=== PATIENT | female | born 1930 | race Asian ===

== ENCOUNTER 2018-07-13 21:28 | Inpatient (IN) | payer MEDICARE, MEDICAID ==
--- NOTE | 2018-07-13 22:31 | ED Physician Chart ---
ED Chief Complaint/HPI - Patient Information Date Seen:: 07/13/18 Time Seen:: 22:00 Chief Complaint:: abnormal lab History of Present Illness:: sent lab today [id number] wbc Allergies:: Allergies Allergy/AdvReac Type Severity Reaction Status Date / Time No Known Allergies Allergy Verified 07/13/18 21:54 Vitals:: Vital Signs - 8 hr 07/13/18 21:45 Temp 99.0 F HR 89 RR 20 BP 135/63 O2 Sat % 99 Review:: Nurse's Note Reviewed, Transfer documents Reviewed, Patient unable to respond ED Review of Systems - Review of Systems General/Constitutional: No fever, No chills, No weight loss, No weakness, No diaphoresis, No edema, No loss of appetite Skin: No skin lesions, No rash, No bruising Head: No headache, No light-headedness Eyes: No loss of vision, No pain, No diplopia ENT: No earache, No nasal drainage, No sore throat, No tinnitus Neck: No neck pain, No swelling, No thyromegaly, No stiffness, No mass noted Cardio Vascular: No chest pain, No palpitations, No PND, No orthopnea, No edema Pulmonary: No SOB, No cough, No sputum, No wheezing GI: No nausea, No vomiting, No diarrhea, No pain, No melena, No hematochezia, No constipation, No hematemesis G/U: No dysuria, No frequency, No hematuria Musculoskeletal: No bone or joint pain, No back pain, No muscle pain Endocrine: No polyuria, No polydipsia Psychiatric: No prior psych history, No depression, No anxiety, No suicidal ideation Hematopoietic: No bruising, No lymphadenopathy Allergic/Immuno: No urticaria, No angioedema Neurological: No syncope, No focal symptoms, No weakness, No paresthesia, No headache, No seizure, No dizziness, No confusion, No vertigo Family Medical History - Family Member Mother History Unknown: Yes ED Physical Exam - Physical Examination General/Constitutional: Non-toxic appearing Head: Atraumatic (dry) Skin: No rash ENMT: External ears, nose nl Neck: No JVD ED Septic Shock - . Is Septic Shock (SBP<90, OR Lactate>4 mmol\L) present?: No - <6hrs of presentation: Vital Signs: Vital Signs - 8 hr 07/13/18 21:45 Temp 99.0 F HR 89 RR 20 BP 135/63 O2 Sat % 99 ED Reassessment (Disposition) - Reassessment Reassessment Condition:: Unchanged (discussed dr daly abnormal lab states will culture and work up for infectious etiology) - Patient Disposition Discharge/Transfer:: Acute Care w/in this hosp (malika rivers will work up for infectious etology upon admission)
[2018-07-13 22:47] LABS: RED BLOOD COUNT 3.17 Mil/cmm (3.80-5.20)
[2018-07-13 22:49] LABS: HEMATOCRIT 30.6 % (41.0-60); HEMOGLOBIN 10.2 gm/dL (12-16); MEAN CELL VOLUME 96.6 fl (81-100); MEAN CORPUSCULAR HEMOGLOBIN 32.1 pg (27.0-31.0); MEAN CORPUSCULAR HGB CONC 33.2 pg (28.0-36.0); MEAN PLATELET VOLUME 7.5 fl; PLATELET COUNT 488 Th/cmm (150-400); RED CELL DISTRIBUTION WIDTH 13.4 % (11.5-20.0)
[2018-07-13 22:51] LABS: WHITE BLOOD COUNT 19.6 Th/cmm (4.8-10.8)
[2018-07-13 22:58] LABS: ANION GAP 14.5 (7.0-16.0); BUN - UREA NITROGEN 49 mg/dL (7-25); CALCIUM SERUM 9.6 mg/dL (8.6-10.3); CHLORIDE 104 mEq/L (98-107); CREATININE - SERUM 0.8 mg/dL (0.6-1.2); GLUCOSE 127 mg/dL (70-105); POTASSIUM SERUM 4.5 mEq/L (3.5-5.1); SODIUM SERUM 142 mEq/L (136-145)
[2018-07-13] MEDS ORDERED: Sodium Chloride 0.9% 250 ML IV ONE (23:09)
[2018-07-13 23:11] LABS: BAND NEUTROPHILE 2 % (0-10); EOSINOPHIL 1 % (0-5); LYMPHOCYTE 8 % (20-50); MONOCYTE 4 % (2-10); NEUTROPHILS 85 % (40-80); PLATELET ESTIMATE ADEQUATE (NORMAL)
[2018-07-14] MEDS ORDERED: Piperacillin Sodium/Tazobact 2.25 gm Vial IV ONE (01:51)
[2018-07-14] MEDS: Piperacillin/Tazobact 2.25 gm in 0.9% NS 50 ML IV SCH ×4 (02:13→20:00)
[2018-07-14 06:04] VITALS: BP 132/68
[2018-07-14] MEDS ORDERED: ARFORMOTEROL TARTRATE HHN SCH (09:00)
--- NOTE | 2018-07-14 09:23 | Diagnostic Imaging Report ---
Exam: Portable chest x-ray HISTORY: Pneumonia Findings: Portable exam of chest at 2303 reviewed no prior studies available comparison. Tracheostomy tube is midline. Bony thorax intact. Mediastinal structures midline the heart is not enlarged aortic is calcified. The costophrenic angles are clear. Ill-defined density in the right base appreciated early pneumonic infiltrate cannot be excluded follow-up exam is recommended. IMPRESSION: question of mild right basilar infiltrate follow-up examination is recommended.
--- NOTE | 2018-07-14 09:50 | History & Physical ---
ADMIT DATE: 07/14/2018 CHIEF COMPLAINT: Fever and leukocytosis. HISTORY OF PRESENT ILLNESS: The patient is an 87-year-old Italian-[place] female admitted from the Emergency Room to telemetry floor of [facility] due to multiple complicated medical conditions. The patient was having fever in the residential and I went to see the patient, the day before yesterday. Lab was ordered, which came back revealed marked leukocytosis. The patient was transferred to the Emergency Room for further evaluation. In the Emergency Room, the patient's white count again was 19,600. She is also dehydrated with BUN 49, creatinine 0.8. Lactic acid level was 1.26. UA was not done. Chest x-ray with no official report seen yet, but the patient probably has aspiration pneumonia. The patient is on G-tube feeding due to status post intracranial hemorrhage, which also resolved the ventilator dependent respiratory failure. The patient is status post tracheostomy almost a year ago. PAST MEDICAL HISTORY: Including status post intracranial hemorrhage, which was the main culprit, COPD, pneumonia, questionable coronary artery disease, urinary tract infection, sepsis, anemia, required blood transfusion, decubitus ulcer, history of DVT. PAST SURGICAL HISTORY: Tracheostomy and G-tube placement. MEDICATIONS: See medication reconciliation list. ALLERGIES: No known drug allergy. FAMILY HISTORY: Noncontributory. SOCIAL HISTORY: The patient is without tobacco, alcohol or IV drug use. REVIEW OF SYSTEMS: As per HPI. PHYSICAL EXAMINATION: GENERAL: Well-developed, thin female, in no acute distress. SKIN: There is excoriation. VITAL SIGNS: Basically stable. HEENT: Normocephalic, atraumatic. Pupils equal, round, react to light and accommodation. CHEST: Symmetrical. LUNGS: Few wheezing appreciated with rhonchi at lung base. CARDIAC: Normal sinus rhythm. S1, S2. ABDOMEN: Benign, soft, nontender. EXTREMITIES: No clubbing, cyanosis. There is trace edema bilaterally, 2+ equally. NEUROLOGICAL: Unremarkable. LABORATORY DATA: Reviewed, seen from the computer. ASSESSMENT AND PLAN: 1. High fever in residential: Multifactorial and varghese culture ordered and empiric antibiotics started, which will be adjusted accordingly. 2. Early sepsis: Blood culture ordered, empiric antibiotics started, which will be adjusted accordingly. 3. Marked leukocytosis: Probably due to aspiration pneumonia and urinary tract infection and early sepsis. We will adjust antibiotics accordingly. 4. Ventilator dependent respiratory failure: Continue ventilator precautions. 5. Dysphagia: Due to status post intracranial hemorrhage. We will continue gastric tube feeding and a gastric tube care provided. 6. Decubitus ulcer: Wound care and completion of 12 hours. 7. Chronic obstructive pulmonary disease: RT protocol. 8. Deep vein thrombosis prophylaxis. JOB# [id number]
[2018-07-14] MEDS: Multivitamin Tab GT SCH (11:00)
[2018-07-14] MEDS: Lactulose 10 Gm/15 mL 30mL UDC PO SCH ×2 (11:00→17:55)
[2018-07-14] MEDS: Albuterol/Ipratropium Neb 3 ML AERS HHN SCH ×2 (13:53→19:28)
[2018-07-14] MEDS: Chlorhexidine Gluconate 0.12% 480mL Bottle MM SCH (17:54)
--- NOTE | 2018-07-14 20:03 | Internal Medicine Prog Note ---
Internal Medicine Subjective - Subjective Service Date: 07/14/18 Patient seen and examined:: without staff Patient is:: asleep, non-verbal, non-interactive, eyes closed, in bed Per staff patient has:: no adverse event Internal Medicine Objective - Results Result Diagrams: 07/13/18 22:30 07/13/18 22:30 Recent Labs: Laboratory Last Values WBC 19.6 Th/cmm (4.8-10.8) H 07/13/18 22:30 RBC 3.17 Mil/cmm (3.80-5.20) L 07/13/18 22:30 Hgb 10.2 gm/dL (12-16) L 07/13/18 22: Hct 30.6 % (41.0-60) L 07/13/18 22: MCV 96.6 fl (81-100) 07/13/18 22:30 MCH 32.1 pg (27.0-31.0) H 07/13/18: MCHC Differential 33.2 pg (28.0-36.0) 07/13/18: RDW 13.4 % (11.5-20.0) 07/13/18 22: Plt Count 488 Th/cmm (150-400) H 07/13/18 22:30 MPV 7.5 fl 07/13/18 22:30 Add Manual Diff YES 07/13/18 22:30 Band Neutrophils % 2 % (0-10) 07/13/18 22:30 Neutrophils (Manual) 85 % (40-80) H 07/13/18 22:30 Lymphocytes 8 % (20-50) L 07/13/18 22:30 Monocytes 4 % (2-10) 07/13/18 22:30 Eosinophils 1 % (0-5) 07/13/18 22:30 Platelet Estimate ADEQUATE (NORMAL) 07/13/18 22: Sodium 142 mEq/L (136-145) 07/13/18 22: Potassium 4.5 mEq/L (3.5-5.1) 07/13/18 22:30 Chloride 104 mEq/L (98-107) 07/13/18 22:30 Carbon Dioxide 28.0 mEq/L (21.0-31.0) 07/13/18 22: Anion Gap 14.5 (7.0-16.0) 07/13/18 22:30 BUN 49 mg/dL (7-25) H 07/13/18 22:30 Creatinine 0.8 mg/dL (0.6-1.2) 07/13/18 22:30 Est GFR ( Amer) TNP 07/13/18 22:30 Est GFR (Non-Af Amer) TNP 07/13/18 22:30 BUN/Creatinine Ratio 61.3 07/13/18 22:30 Glucose 127 mg/dL (70-105) H 07/13/18 22:30 Whole Bld Lactic Acid 1.26 mmol/L (0.60-1.99) 07/13/18 22:30 Calcium 9.6 mg/dL (8.6-10.3) 07/13/18 22:30 - Physical Exam Vitals and I&O: Vital Signs Temp 98.6 F 07/14/18 16:00 Pulse 105 07/14/18 16:00 Resp 20 07/14/18 16:00 BP 130/67 07/14/18 16:00 Pulse Ox 96 07/14/18 16:00 Intake & Output 07/14/18 07/14/18 07/15/18 06:59 18:59 06:59 Intake Total 50 700 Balance 50 700 Weight (lbs) 44.906 kg 44.906 kg Intake: Intake, IV Amount 50 50 Piperacillin Sodium/ 50 50 Tazobact 2.25 gm In Sodium Chloride 0.9% 50 ml @ 100 mls/hr IV Q6H [facility] Rx#:[id number] Albumin 200 Other 450 Other: Stool Characteristics Soft Weight Source Estimated Bedscale Active Medications: Current Medications Acetaminophen (Tylenol) 650 mg GT Q6HR PRN PRN Reason: Pain or Fever >101 Stop: 09/12/18 07:58 Albuterol/Ipratropium (Duoneb Neb) 3 ml HHN Q6HRT [facility] Stop: 09/12/18 12:59 Last Admin: 07/14/18 19:28 Dose: 3 ml Amlodipine Besylate (Norvasc) 10 mg GT DAILY [facility] Stop: 09/12/18 08:59 Last Admin: 07/14/18 10:58 Dose: 10 mg Bisacodyl (Dulcolax 10 Mg Supp) 10 mg RC DAILY PRN PRN Reason: Constipation Stop: 09/12/18 07:58 Chlorhexidine Gluconate (Peridex) 15 ml MM BID [facility] Stop: 09/12/18 08:59 Last Admin: 07/14/18 17:54 Dose: 15 ml Glycopyrrolate (Robinul) 1 mg GT BID [facility] Stop: 09/12/18 08:59 Last Admin: 07/14/18 17:54 Dose: 1 mg Piperacillin Sod/Tazobactam (Sod 2.25 gm/ Sodium Chloride) 50 mls @ 100 mls/hr IV Q6H [facility]; Protocol Stop: 09/12/18 01:29 Last Admin: 07/14/18 17:55 Dose: 100 mls/hr Lactulose (Cephulac) 20 gm PO BID [facility] Stop: 09/12/18 08:59 Last Admin: 07/14/18 17:55 Dose: 20 gm Miscellaneous (Arformoterol Tartrate [Brovana]) 1 vial HHN BID [facility] Stop: 09/12/18 08:59 Multivitamins/Vitamin C (Theragran) 1 tab GT DAILY [facility] Stop: 09/12/18 08:59 Last Admin: 07/14/18 11:00 Dose: 1 tab Ondansetron HCl (Zofran) 4 mg IV Q6H PRN PRN Reason: Nausea / Vomiting Stop: 09/12/18 08:14 General: weak, lethargic, congested, demented, obtunded, thin, bilateral temporal wasting HEENT: NC/AT, PERRLA Neck: Supple, No JVD, No thyromegaly, +2 carotid pulse wo bruit, No LAD Lungs: wheezing, ronchi Cardiovascular: RRR, Normal S1, Normal S2, without murmur Abdomen: soft, non-tender, non-distended Extremities: clear, edema Neurological: no change - Procedures Procedures: Procedures Procedure Code Date RESPIRATORY VENTILATION, LESS THAN 24 CONSECUTIVE HOURS [id number] 07/13/18 Internal Medicine Assmt/Plan - Assessment Assessment: Early sepsis: IVF; IVPB ABX, pendign culture results. Leukocytosis: adjusting ABX accordingly. Fever: Better. VDRF: continue trach care and aspiration precaution. Gtube status: Gtube care. ALOC: multifactorial. Decubitus ulcer: wound care. UTI: pending C&S result. COPD: RT protocol. Nutritional Asmnt/Malnutr-PDOC - Dietary Evaluation Malnutrition Findings (Please click <Entered> for more info): Nutritional Asmnt/Malnutrition Start: 07/14/18 16: 23 Text: Status: Complete Freq: Protocol: Document 07/14/18 16:24 LCHENG (Rec: 07/14/18 16:32 LCHENG [id number]) Nutritional Asmnt/Malnutrition Patient General Information Nutritional Screening High Risk Diagnosis sepsis Pertinent Medical Hx/Surgical Hx s/p intracranial hemorrhage, COPD, PNA, ?CAD, UTI, sepsis, anemia, decubitus ulcer, DVT, trach, Gtube placement Subjective Information Pt see resting in bed at time of visit, trach on vent. TF was running at 45ml/hr as ordered. Current Diet Order/ Nutrition Support Jevity 1.2 at 45ml x 20hr Pertinent Medications theragran, piperacillin Pertinent Labs 07/13 BUN 49, Glucose 127 Nutritional Hx/Data Height 1.52 m Height (Calculated Centimeters) 152.4 Current Weight (lbs) 44.906 kg Weight (Calculated Kilograms) 44.9 Weight (Calculated Grams) 39607.6 [place] Body Weight 100 Body Mass Index (BMI) 19.3 Weight Status Approriate GI Symptoms GI Symptoms None Last BM not indicated Difficult in: None Skin Integrity/Comment: intact Estimated Nutritional Goals BEE in Kcals: Using Current wt Calories/Kcals/Kg 23-27 Kcals Calculated 7967-4221 Protein: Using Current wt Protein g/k-1.2 Protein Calculated 45-55 Fluid: ml 1035-1215ml (1ml/kcal) Nutritional Problem No current Nutrition Prob Problem N/A Malnutrition Alert Is there a minimum of two criteria No selected? Query Text:Check all the applicable criteria. A minimum of two criteria are recommended for diagnosis of either severe or non-severe malnutrition. Malnutrition Related to Morbid Obesity Malnutrition related to morbid obesity No Intervention/Recommendation Comments 1. Continue with current TF regimen Jevity 1.2 at 45ml/hr x 20hr. It provides 1080kcal, 50g protein, 726ml free water, meeting 100% of nutritional needs 2. Monitor TF rate, tolerance, wt, skin integrity and labs 3. F/U as moderate risk in 3-5 days Expected Outcomes/Goals Expected Outcomes/Goals 1. Pt to meet at least 90% of nutritional needs via nutrition support with tolerance 2. Wt stability, skin to remain intact, labs to approach WNL.
--- NOTE | 2018-07-14 20:25 | Consultation ---
DATE OF CONSULTATION: 07/14/2018 INFECTIOUS DISEASE CONSULTATION REFERRING PHYSICIAN: Jan Gannon MD REASON FOR CONSULTATION: Fever and leukocytosis, aspiration pneumonia versus nosocomial pneumonia. HISTORY OF PRESENT ILLNESS: The patient is an 87-year-old female with a past medical history of intracranial hemorrhage, which caused bedridden status, COPD, pneumonia, coronary artery disease, UTI in the past, sepsis in the past, anemia in the past, anemia requiring blood transfusions, decubitus ulcers, history of DVT, tracheostomy and G-tube placement on T-bar oxygen at this time, brought in from nursing facility for fever. Our lab work showed leukocytosis. The patient was transferred to ER with a diagnosis of sepsis. On initial evaluation, the patient's temperature was 99 degrees Fahrenheit and WBC count was 19,600. There is a letter from the family documenting her WBC count was 19,100 on 04/29/2018. Overall, her condition is deteriorating. Sepsis workup was performed. Lactic acid was normal. However, her chest x-ray showed right-sided perihilar infiltrate. Besides this, the patient has large amount of yellow thick endotracheal secretion, requires frequent suctioning. PAST MEDICAL HISTORY: Includes as mentioned above, history of CVA, intracranial hemorrhage, COPD, pneumonia, carotid disease, UTI, sepsis, anemia requiring blood transfusion, decubitus ulcer, history of DVT. G-tube, trach tract, respiratory failure with T-bar oxygen. MEDICATIONS: As per medication reconciliation sheet. Antibiotic ruiz, the patient is receiving Zosyn. ALLERGIES: NKDA. MEDICATIONS: As per medication reconciliation sheet. Antibiotic ruiz, the patient is taking Zosyn. FAMILY HISTORY: Noncontributory. SOCIAL HISTORY: The patient lives at nursing facility, , has supportive . The patient has no history of smoking, alcohol or drug use. REVIEW OF SYSTEMS: The patient is unresponsive, unable to give any history. PHYSICAL EXAMINATION: VITAL SIGNS: Current vital signs show temperature is 98.6 degrees Fahrenheit, pulse 105, respiration is 20, blood pressure is 130/67, oxygen saturation 96% on T-bar oxygen. HEENT: Head is normocephalic, atraumatic. Oral cavity moist, pink tongue. Eyes: Pallor is present, no icterus. PERRLA, EOMI. NECK: Trach site is clear. There is a large amount of yellow secretion present in the T-bar apparatus. CHEST: Bilateral breath sounds. Crackles present. Rhonchi present on the right side. HEART: S1, S2 within normal limits. Regular rhythm. No murmur, no gallop. ABDOMEN: Soft, nontender, nondistended. Bowel sounds present. G-tube site in the epigastric area clear. EXTREMITIES: No cyanosis, no clubbing, no edema. NEUROLOGICAL: Unresponsive. LABORATORY RUIZ: Current lab shows WBC count is 19,600, hemoglobin 10.2, hematocrit 30.6, platelets are 488,000, neutrophil 85%. Sodium 142, potassium 4.5, chloride 104, bicarbonate is 28, BUN is 49, creatinine 0.8, glucose is 127. Lactic acid was 2.8. Urinalysis not available. Chest x-ray showed right perihilar infiltrate, right basilar infiltrate. IMPRESSION: 1. Leukocytosis with history of sepsis, tachycardia, suspect sepsis secondary to aspiration pneumonia. 2. Aspiration pneumonia. 3. The patient has history of urinary tract infection, this is one of the possibility for cerebrovascular accident. 4. History of chronic obstructive pulmonary disease. 5. Respiratory failure, on T-bar oxygen. 6. Cerebrovascular accident, intracranial hemorrhage, bedridden status. 7. Coronary artery disease. 8. Anemia. 9. History of deep venous thrombosis. 10. Status post tracheostomy. 11. Status post gastrostomy tube placement. RECOMMENDATIONS AND PLAN: We will continue Zosyn and get the sputum culture, urinalysis, urine culture and go from there. Meanwhile, provide supportive care. Check the labs on a routine basis. Depending on the culture report, we will define the final antibiotic therapy. Thank you, Dr. Gannon for involving me in taking care of this patient. JOB# [id number]
[2018-07-15] MEDS: Albuterol/Ipratropium Neb 3 ML AERS HHN SCH ×4 (00:45→19:04)
[2018-07-15] MEDS: Piperacillin/Tazobact 2.25 gm in 0.9% NS 50 ML IV SCH ×4 (01:31→19:01)
[2018-07-15 05:52] LABS: HEMATOCRIT 27.8 % (41.0-60); HEMOGLOBIN 9.4 gm/dL (12-16); MEAN CELL VOLUME 96.2 fl (81-100); MEAN CORPUSCULAR HEMOGLOBIN 32.6 pg (27.0-31.0); MEAN CORPUSCULAR HGB CONC 33.9 pg (28.0-36.0); MEAN PLATELET VOLUME 7.7 fl; PLATELET COUNT 419 Th/cmm (150-400); RED BLOOD COUNT 2.89 Mil/cmm (3.80-5.20); RED CELL DISTRIBUTION WIDTH 13.6 % (11.5-20.0)
[2018-07-15 05:59] LABS: WHITE BLOOD COUNT 19.9 Th/cmm (4.8-10.8)
[2018-07-15 06:10] LABS: ALB/GLOB RATIO 0.8 (1.0-1.8); ALBUMIN 3.1 gm/dL (3.7-5.3); ALKALINE PHOSPHATASE 66 U/L (34-104); ANION GAP 14.1 (7.0-16.0); BILIRUBIN,TOTAL 0.4 mg/dL (0.3-1.0); BUN - UREA NITROGEN 45 mg/dL (7-25); CARBON DIOXIDE 27.7 mEq/L (21.0-31.0); CHLORIDE 110 mEq/L (98-107); CREATININE - SERUM 1.1 mg/dL (0.6-1.2); GLUCOSE 142 mg/dL (70-105); MAGNESIUM 2.5 mg/dL (1.9-2.7); POTASSIUM SERUM 3.8 mEq/L (3.5-5.1); SGOT 35 U/L (13-39); SGPT/ALT 76 U/L (7-52); SODIUM SERUM 148 mEq/L (136-145); TOTAL PROTEIN,SERUM 6.9 gm/dL (6.0-8.3)
[2018-07-15 07:32] LABS: BAND NEUTROPHILE 1 % (0-10); BASOPHIL 0 % (0-3); EOSINOPHIL 0 % (0-5); LYMPHOCYTE 3 % (20-50); MONOCYTE 5 % (2-10); NEUTROPHILS 91 % (40-80)
[2018-07-15 07:57] LABS: URINE SOURCE FOLEY PORT
[2018-07-15 08:07] LABS: URINE BILIRUBIN NEGATIVE (NEGATIVE); URINE BLOOD NEGATIVE (NEGATIVE); URINE GLUCOSE (UA) NEGATIVE (NEGATIVE); URINE KETONE NEGATIVE (NEGATIVE); URINE LEUKOCYTE ESTERASE NEGATIVE (NEGATIVE); URINE MICROSCOPIC INDICATED? YES; URINE NITRATE NEGATIVE (NEGATIVE); URINE PROTEIN TRACE mg/dL (NEGATIVE); URINE UROBILINOGEN 0.2 E.U./dL (0.2 - 1.0)
[2018-07-15 08:13] LABS: URINE CLARITY SLIGHTLY HAZY (CLEAR); URINE COLOR YELLOW
[2018-07-15 08:26] LABS: URINE BACTERIA FEW /hpf (NONE SEEN); URINE EPITHELIAL CELLS FEW /lpf (FEW); URINE WBC 0-2 /hpf (0-5)
[2018-07-15 08:27] LABS: URINE AMORPHOUS SEDIMENT FEW URATES (NONE SEEN); URINE YEAST FEW /hpf (NONE SEEN)
--- NOTE | 2018-07-15 08:30 | Diagnostic Imaging Report ---
Exam: Chest x-ray HISTORY: Shortness of breath Prior exam: 07/13/2018 Findings: Frontal examination of chest reviewed demonstrates tracheostomy tube midline. No acute pulmonic infiltrates or effusions are noted bony thorax intact. The aortic arch calcified. IMPRESSION: Improved aeration right base no acute disease.
[2018-07-15] MEDS: Chlorhexidine Gluconate 0.12% 480mL Bottle MM SCH ×2 (08:55→18:00)
[2018-07-15] MEDS: Multivitamin Tab GT SCH (08:55)
[2018-07-15] MEDS: Lactulose 10 Gm/15 mL 30mL UDC PO SCH ×2 (08:55→16:44)
--- NOTE | 2018-07-15 17:10 | Consultation ---
DATE OF CONSULTATION: 07/14/2018 REFERRING PHYSICIAN: Dr. Gannon. Thank you very much for this consultation. HISTORY OF PRESENT ILLNESS: This is an 87-year-old female with history of chronic respiratory failure, retirement resident who has tracheostomy for over a year, who presented with leukocytosis, fever, congestion, and was admitted for treatment and management. The patient was diagnosed with pneumonia. The patient has history of intracranial hemorrhage and COPD. SOCIAL HISTORY: custodial resident. REVIEW OF SYSTEMS: Unable to obtain because of the patient's condition. PHYSICAL EXAMINATION: GENERAL: The patient's tracheostomy has still copious thick secretions. VITAL SIGNS: Temperature 98.6, pulse 105, respirations 20, blood pressure 130/67, saturation 90%. HEENT: Pupils are equal and reactive to light and accommodation. Ears, nose and throat normal. NECK: Supple. No JVD. CHEST: There are good breath sounds, few rhonchi bilaterally. HEART: Regular rhythm. ABDOMEN: Soft. EXTREMITIES: No edema. LABORATORY DATA: WBC is 19.6, hemoglobin 10.2, hematocrit 30.6, platelets 488. potassium 4.5, BUN 49, creatinine 0.8. Chest x-ray showed infiltrated right lower lobe area. Tracheostomy tube in place. IMPRESSION: 1. This is an 87-year-old female with acute and chronic respiratory failure. 2. Pneumonia, possible aspiration. 3. Urinary tract infection. PLAN: 1. We will continue antibiotics. 2. Nebulizer treatment. 3. Pulmonary toilet and supportive care. 4. Follow up cultures and followup chest x-ray. Thank you very much for this consultation. I will follow the patient with you. JOB# [id number] SHERRY
--- NOTE | 2018-07-15 20:58 | Internal Medicine Prog Note ---
Internal Medicine Subjective - Subjective Service Date: 07/15/18 Patient seen and examined:: without staff Patient is:: asleep, non-verbal, non-interactive, eyes closed, in bed Per staff patient has:: no adverse event Internal Medicine Objective - Results Result Diagrams: 07/15/18 05:25 07/15/18 05:25 Recent Labs: Laboratory Last Values WBC 19.9 Th/cmm (4.8-10.8) H 07/15/18 05:25 RBC 2.89 Mil/cmm (3.80-5.20) L 07/15/18 05:25 Hgb 9.4 gm/dL (12-16) L 07/15/18 05:25 Hct 27.8 % (41.0-60) L 07/15/18 05:25 MCV 96.2 fl (81-100) 07/15/18 05:25 MCH 32.6 pg (27.0-31.0) H 07/15/18 05:25 MCHC Differential 33.9 pg (28.0-36.0) 07/15/18 05:25 RDW 13.6 % (11.5-20.0) 07/15/18 05:25 Plt Count 419 Th/cmm (150-400) H 07/15/18 05:25 MPV 7.7 fl 07/15/18 05:25 Add Manual Diff YES 07/15/18 05:25 Band Neutrophils % 1 % (0-10) 07/15/18 05:25 Neutrophils (Manual) 91 % (40-80) H 07/15/18 05:25 Lymphocytes 3 % (20-50) L 07/15/18 05:25 Monocytes 5 % (2-10) 07/15/18 05:25 Eosinophils 0 % (0-5) 07/15/18 05:25 Basophils 0 % (0-3) 07/15/18 05:25 Platelet Estimate ADEQUATE (NORMAL) 07/13/18 22:30 Sodium 148 mEq/L (136-145) H 07/15/18 05:25 Potassium 3.8 mEq/L (3.5-5.1) 07/15/18 05:25 Chloride 110 mEq/L (98-107) H 07/15/18 05:25 Carbon Dioxide 27.7 mEq/L (21.0-31.0) 07/15/18 05:25 Anion Gap 14.1 (7.0-16.0) 07/15/18 05:25 BUN 45 mg/dL (7-25) H 07/15/18 05:25 Creatinine 1.1 mg/dL (0.6-1.2) 07/15/18 05:25 Est GFR ( Amer) TNP 07/15/18 05:25 Est GFR (Non-Af Amer) TNP 07/15/18 05:25 BUN/Creatinine Ratio 40.9 07/15/18 05:25 Glucose 142 mg/dL (70-105) H 07/15/18 05:25 Whole Bld Lactic Acid 1.26 mmol/L (0.60-1.99) 07/13/18 22:30 Calcium 9.0 mg/dL (8.6-10.3) 07/15/18 05:25 Magnesium 2.5 mg/dL (1.9-2.7) 07/15/18 05:25 Total Bilirubin 0.4 mg/dL (0.3-1.0) 07/15/18 05:25 AST 35 U/L (13-39) 07/15/18 05:25 ALT 76 U/L (7-52) H 07/15/18 05:25 Alkaline Phosphatase 66 U/L (34-104) 07/15/18 05:25 Total Protein 6.9 gm/dL (6.0-8.3) 07/15/18 05:25 Albumin 3.1 gm/dL (3.7-5.3) L 07/15/18 05:25 Globulin 3.8 gm/dL 07/15/18 05:25 Albumin/Globulin Ratio 0.8 (1.0-1.8) L 07/15/18 05:25 Urine Source [place] 07/15/18 05:00 Urine Color YELLOW 07/15/18 05:00 Urine Clarity SLIGHTLY HAZY (CLEAR) 07/15/18 05:00 Urine pH 6.0 (4.6 - 8.0) 07/15/18 05:00 Ur Specific [place] 1.020 (1.005-1.030) 07/15/18 05:00 Urine Protein TRACE mg/dL (NEGATIVE) 07/15/18 05:00 Urine Glucose (UA) NEGATIVE mg/dL (NEGATIVE) 07/15/18 05:00 Urine Ketones NEGATIVE mg/dL (NEGATIVE) 07/15/18 05:00 Urine Blood NEGATIVE (NEGATIVE) 07/15/18 05:00 Urine Nitrate NEGATIVE (NEGATIVE) 07/15/18 05:00 Urine Bilirubin NEGATIVE (NEGATIVE) 07/15/18 05:00 Urine Urobilinogen 0.2 E.U./dL (0.2 - 1.0) 07/15/18 05:00 Ur Leukocyte Esterase NEGATIVE (NEGATIVE) 07/15/18 05:00 Urine RBC 2-5 /hpf (0-5) 07/15/18 05:00 Urine WBC 0-2 /hpf (0-5) 07/15/18 05:00 Ur Epithelial Cells FEW /lpf (FEW) 07/15/18 05:00 Amorphous Sediment FEW URATES (NONE SEEN) 07/15/18 05:00 Urine Bacteria FEW /hpf (NONE SEEN) 07/15/18 05:00 Urine Yeast FEW /hpf (NONE SEEN) H 07/15/18 05:00 - Physical Exam Vitals and I&O: Vital Signs Temp 98.4 F 07/15/18 15:59 Pulse 84 07/15/18 19:32 Resp 18 07/15/18 19:32 BP 110/64 07/15/18 15:59 Pulse Ox 96 07/15/18 19:32 Intake & Output 07/15/18 07/15/18 07/16/18 06:59 18:59 06:59 Intake Total 740 350 Output Total 325 Balance 415 350 Weight (lbs) 47.627 kg 47.627 kg Intake: Intake, IV Amount 100 100 Piperacillin Sodium/ 100 100 Tazobact 2.25 gm In Sodium Chloride 0.9% 50 ml @ 100 mls/hr IV Q6H [facility] Rx#:[id number] Oral 0 Tube Feeding 540 Other 100 250 Output: Urine 325 Other: # Voids 350 # Bowel Movements 2 2 Stool Characteristics Soft Soft Brown Formed Weight Source Bedscale Bedscale Active Medications: Current Medications Acetaminophen (Tylenol) 650 mg GT Q6HR PRN PRN Reason: Pain or Fever >101 Stop: 09/12/18 07:58 Albuterol/Ipratropium (Duoneb Neb) 3 ml HHN Q6HRT [facility] Stop: 09/12/18 12:59 Last Admin: 07/15/18 19:04 Dose: 3 ml Amlodipine Besylate (Norvasc) 10 mg GT DAILY [facility] Stop: 09/12/18 08:59 Last Admin: 07/15/18 08:56 Dose: 10 mg Bisacodyl (Dulcolax 10 Mg Supp) 10 mg RC DAILY PRN PRN Reason: Constipation Stop: 09/12/18 07:58 Chlorhexidine Gluconate (Peridex) 15 ml MM BID [facility] Stop: 09/12/18 08:59 Last Admin: 07/15/18 18:00 Dose: 15 ml Glycopyrrolate (Robinul) 1 mg GT BID [facility] Stop: 09/12/18 08:59 Last Admin: 07/15/18 16:45 Dose: 1 mg Piperacillin Sod/Tazobactam (Sod 2.25 gm/ Sodium Chloride) 50 mls @ 100 mls/hr IV Q6H [facility]; Protocol Stop: 09/12/18 01:29 Last Admin: 07/15/18 19:01 Dose: 100 mls/hr Lactulose (Cephulac) 20 gm PO BID [facility] Stop: 09/12/18 08:59 Last Admin: 07/15/18 16:44 Dose: 20 gm Miscellaneous (Arformoterol Tartrate [Brovana]) 1 vial HHN BID [facility] Stop: 09/12/18 08:59 Multivitamins/Vitamin C (Theragran) 1 tab GT DAILY [facility] Stop: 09/12/18 08:59 Last Admin: 07/15/18 08:55 Dose: 1 tab Ondansetron HCl (Zofran) 4 mg IV Q6H PRN PRN Reason: Nausea / Vomiting Stop: 09/12/18 08:14 General: weak, lethargic, congested, demented, obtunded, thin, bilateral temporal wasting HEENT: NC/AT, PERRLA Neck: Supple, No JVD, No thyromegaly, +2 carotid pulse wo bruit, No LAD Lungs: wheezing, ronchi Cardiovascular: RRR, Normal S1, Normal S2, without murmur Abdomen: soft, non-tender, non-distended Extremities: clear, edema Neurological: no change - Procedures Procedures: Procedures Procedure Code Date RESPIRATORY VENTILATION, LESS THAN 24 CONSECUTIVE HOURS [id number] 07/13/18 Internal Medicine Assmt/Plan - Assessment Assessment: Persistent Leukocytosis: will adjusting ABX accordingly. Early sepsis: IVF; IVPB ABX, pendign culture results. Fever: Better. VDRF: continue trach care and aspiration precaution. Gtube status: Gtube care. ALOC: multifactorial. Decubitus ulcer: wound care. UTI?: pending C&S result. COPD: RT protocol. Early aspiration PNA: IVOB Zosyn. Nutritional Asmnt/Malnutr-PDOC - Dietary Evaluation Malnutrition Findings (Please click <Entered> for more info): Nutritional Asmnt/Malnutrition Start: 07/14/18 16: 23 Text: Status: Complete Freq: Protocol: Document 07/14/18 16:24 LCHENG (Rec: 07/14/18 16:32 [email or web address]) Nutritional Asmnt/Malnutrition Patient General Information Nutritional Screening High Risk Diagnosis sepsis Pertinent Medical Hx/Surgical Hx s/p intracranial hemorrhage, COPD, PNA, ?CAD, UTI, sepsis, anemia, decubitus ulcer, DVT, trach, Gtube placement Subjective Information Pt see resting in bed at time of visit, trach on vent. TF was running at 45ml/hr as ordered. Current Diet Order/ Nutrition Support Jevity 1.2 at 45ml x 20hr Pertinent Medications theragran, piperacillin Pertinent Labs 07/13 BUN 49, Glucose 127 Nutritional Hx/Data Height 1.52 m Height (Calculated Centimeters) 152.4 Current Weight (lbs) 44.906 kg Weight (Calculated Kilograms) 44.9 Weight (Calculated Grams) 17501.6 [place] Body Weight 100 Body Mass Index (BMI) 19.3 Weight Status Approriate GI Symptoms GI Symptoms None Last BM not indicated Difficult in: None Skin Integrity/Comment: intact Estimated Nutritional Goals BEE in Kcals: Using Current wt Calories/Kcals/Kg 23-27 Kcals Calculated 4304-6496 Protein: Using Current wt Protein g/k-1.2 Protein Calculated 45-55 Fluid: ml 1035-1215ml (1ml/kcal) Nutritional Problem No current Nutrition Prob Problem N/A Malnutrition Alert Is there a minimum of two criteria No selected? Query Text:Check all the applicable criteria. A minimum of two criteria are recommended for diagnosis of either severe or non-severe malnutrition. Malnutrition Related to Morbid Obesity Malnutrition related to morbid obesity No Intervention/Recommendation Comments 1. Continue with current TF regimen Jevity 1.2 at 45ml/hr x 20hr. It provides 1080kcal, 50g protein, 726ml free water, meeting 100% of nutritional needs 2. Monitor TF rate, tolerance, wt, skin integrity and labs 3. F/U as moderate risk in 3-5 days Expected Outcomes/Goals Expected Outcomes/Goals 1. Pt to meet at least 90% of nutritional needs via nutrition support with tolerance 2. Wt stability, skin to remain intact, labs to approach WNL.
[2018-07-16] MEDS: Piperacillin/Tazobact 2.25 gm in 0.9% NS 50 ML IV SCH ×4 (01:30→18:41)
[2018-07-16] MEDS: Albuterol/Ipratropium Neb 3 ML AERS HHN SCH ×4 (01:46→19:17)
[2018-07-16] MEDS: Multivitamin Tab GT SCH (09:55)
[2018-07-16] MEDS: Lactulose 10 Gm/15 mL 30mL UDC PO SCH ×2 (09:56→17:24)
[2018-07-16] MEDS: Chlorhexidine Gluconate 0.12% 480mL Bottle MM SCH ×3 (09:56→17:25)
--- NOTE | 2018-07-16 13:54 | Infectious Disease Prog Note ---
Infectious Disease Subjective - Review of Systems Service Date: 07/16/18 Subjective: No new change, no fever. Infectious Disease Objective - Results Result Diagrams: 07/15/18 05:25 07/15/18 05:25 Recent Labs: Laboratory Last Values WBC 19.9 Th/cmm (4.8-10.8) H 07/15/18 05:25 RBC 2.89 Mil/cmm (3.80-5.20) L 07/15/18 05:25 Hgb 9.4 gm/dL (12-16) L 07/15/18 05:25 Hct 27.8 % (41.0-60) L 07/15/18 05:25 MCV 96.2 fl (81-100) 07/15/18 05:25 MCH 32.6 pg (27.0-31.0) H 07/15/18 05:25 MCHC Differential 33.9 pg (28.0-36.0) 07/15/18 05:25 RDW 13.6 % (11.5-20.0) 07/15/18 05:25 Plt Count 419 Th/cmm (150-400) H 07/15/18 05:25 MPV 7.7 fl 07/15/18 05:25 Add Manual Diff YES 07/15/18 05:25 Band Neutrophils % 1 % (0-10) 07/15/18 05:25 Neutrophils (Manual) 91 % (40-80) H 07/15/18 05:25 Lymphocytes 3 % (20-50) L 07/15/18 05:25 Monocytes 5 % (2-10) 07/15/18 05:25 Eosinophils 0 % (0-5) 07/15/18 05:25 Basophils 0 % (0-3) 07/15/18 05:25 Platelet Estimate ADEQUATE (NORMAL) 07/13/18 22:30 Sodium 148 mEq/L (136-145) H 07/15/18 05:25 Potassium 3.8 mEq/L (3.5-5.1) 07/15/18 05:25 Chloride 110 mEq/L (98-107) H 07/15/18 05:25 Carbon Dioxide 27.7 mEq/L (21.0-31.0) 07/15/18 05:25 Anion Gap 14.1 (7.0-16.0) 07/15/18 05:25 BUN 45 mg/dL (7-25) H 07/15/18 05:25 Creatinine 1.1 mg/dL (0.6-1.2) 07/15/18 05:25 Est GFR ( Amer) TNP 07/15/18 05:25 Est GFR (Non-Af Amer) TNP 07/15/18 05:25 BUN/Creatinine Ratio 40.9 07/15/18 05:25 Glucose 142 mg/dL (70-105) H 07/15/18 05:25 Whole Bld Lactic Acid 1.26 mmol/L (0.60-1.99) 07/13/18 22:30 Calcium 9.0 mg/dL (8.6-10.3) 07/15/18 05:25 Magnesium 2.5 mg/dL (1.9-2.7) 07/15/18 05:25 Total Bilirubin 0.4 mg/dL (0.3-1.0) 07/15/18 05:25 AST 35 U/L (13-39) 07/15/18 05:25 ALT 76 U/L (7-52) H 07/15/18 05:25 Alkaline Phosphatase 66 U/L (34-104) 07/15/18 05:25 Total Protein 6.9 gm/dL (6.0-8.3) 07/15/18 05:25 Albumin 3.1 gm/dL (3.7-5.3) L 07/15/18 05:25 Globulin 3.8 gm/dL 07/15/18 05:25 Albumin/Globulin Ratio 0.8 (1.0-1.8) L 07/15/18 05:25 Urine Source [place] 07/15/18 05:00 Urine Color YELLOW 07/15/18 05:00 Urine Clarity SLIGHTLY HAZY (CLEAR) 07/15/18 05:00 Urine pH 6.0 (4.6 - 8.0) 07/15/18 05:00 Ur Specific [place] 1.020 (1.005-1.030) 07/15/18 05:00 Urine Protein TRACE mg/dL (NEGATIVE) 07/15/18 05:00 Urine Glucose (UA) NEGATIVE mg/dL (NEGATIVE) 07/15/18 05:00 Urine Ketones NEGATIVE mg/dL (NEGATIVE) 07/15/18 05:00 Urine Blood NEGATIVE (NEGATIVE) 07/15/18 05:00 Urine Nitrate NEGATIVE (NEGATIVE) 07/15/18 05:00 Urine Bilirubin NEGATIVE (NEGATIVE) 07/15/18 05:00 Urine Urobilinogen 0.2 E.U./dL (0.2 - 1.0) 07/15/18 05:00 Ur Leukocyte Esterase NEGATIVE (NEGATIVE) 07/15/18 05:00 Urine RBC 2-5 /hpf (0-5) 07/15/18 05:00 Urine WBC 0-2 /hpf (0-5) 07/15/18 05:00 Ur Epithelial Cells FEW /lpf (FEW) 07/15/18 05:00 Amorphous Sediment FEW URATES (NONE SEEN) 07/15/18 05:00 Urine Bacteria FEW /hpf (NONE SEEN) 07/15/18 05:00 Urine Yeast FEW /hpf (NONE SEEN) H 07/15/18 05:00 - Physical Exam Vitals and I&O: Vital Signs Temp 100.0 F 07/16/18 12:00 Pulse 85 07/16/18 12:26 Resp 20 07/16/18 12:26 BP 132/73 07/16/18 12:00 Pulse Ox 95 07/16/18 12:26 Intake & Output 07/15/18 07/16/18 07/16/18 18:59 06:59 18:59 Intake Total 350 640 50 Output Total 350 Balance 350 290 50 Weight (lbs) 47.627 kg 47.627 kg Intake: Intake, IV Amount 100 100 50 Piperacillin Sodium/ 100 100 50 Tazobact 2.25 gm In Sodium Chloride 0.9% 50 ml @ 100 mls/hr IV Q6H [facility] Rx#:[id number] Oral 0 Tube Feeding 540 Other 250 Output: Urine 350 Other: # Voids 350 # Bowel Movements 2 Stool Characteristics Soft Soft Soft Formed Formed Formed Weight Source Bedscale Bedscale Active Medications: Current Medications Acetaminophen (Tylenol) 650 mg GT Q6HR PRN PRN Reason: Pain or Fever >101 Stop: 09/12/18 07:58 Last Admin: 07/16/18 12:04 Dose: 650 mg Albuterol/Ipratropium (Duoneb Neb) 3 ml HHN Q6HRT [facility] Stop: 09/12/18 12:59 Last Admin: 07/16/18 12:26 Dose: 3 ml Amlodipine Besylate (Norvasc) 10 mg GT DAILY [facility] Stop: 09/12/18 08:59 Last Admin: 07/16/18 09:55 Dose: 10 mg Bisacodyl (Dulcolax 10 Mg Supp) 10 mg RC DAILY PRN PRN Reason: Constipation Stop: 09/12/18 07:58 Chlorhexidine Gluconate (Peridex) 15 ml MM BID [facility] Stop: 09/12/18 08:59 Last Admin: 07/16/18 09:56 Dose: 15 ml Glycopyrrolate (Robinul) 1 mg GT BID [facility] Stop: 09/12/18 08:59 Last Admin: 07/16/18 09:56 Dose: 1 mg Piperacillin Sod/Tazobactam (Sod 2.25 gm/ Sodium Chloride) 50 mls @ 100 mls/hr IV Q6H [facility]; Protocol Stop: 09/12/18 01:29 Last Admin: 07/16/18 12:34 Dose: 100 mls/hr Lactulose (Cephulac) 20 gm PO BID [facility] Stop: 09/12/18 08:59 Last Admin: 07/16/18 09:56 Dose: 20 gm Miscellaneous (Arformoterol Tartrate [Brovana]) 1 vial HHN BID [facility] Stop: 09/12/18 08:59 Multivitamins/Vitamin C (Theragran) 1 tab GT DAILY [facility] Stop: 09/12/18 08:59 Last Admin: 07/16/18 09:55 Dose: 1 tab Ondansetron HCl (Zofran) 4 mg IV Q6H PRN PRN Reason: Nausea / Vomiting Stop: 09/12/18 08:14 General: no acute distress, cachectic HEENT: atraumatic, normocephalic, PERRLA Neck: supple, no thyromegaly Cardiovascular: S1S2, regular Lungs: clear to auscultation bilaterally, crackles Abdomen: soft, no tender, no distended Extremities: no cyanosis, no clubbing, no edema Neurological: other (nable to communicate.) Skin: intact - Procedures Procedures: Procedures Procedure Code Date RESPIRATORY VENTILATION, LESS THAN 24 CONSECUTIVE HOURS [id number] 07/13/18 Infectious Disease Assmt/Plan - Assessment Assessment: 1. Leukocytosis with history of sepsis, tachycardia, suspect sepsis secondary to aspiration pneumonia. 2. Aspiration pneumonia. 3. The patient has history of urinary tract infection, this is one of the possibility for cerebrovascular accident. 4. History of chronic obstructive pulmonary disease. 5. Respiratory failure, on T-bar oxygen. 6. Cerebrovascular accident, intracranial hemorrhage, bedridden status. 7. Coronary artery disease. 8. Anemia. 9. History of deep venous thrombosis. 10. Status post tracheostomy. 11. Status post gastrostomy tube placement. - Plan Plan: Continue present treatment. Consider hematology consult, if the leukocytosis is persistent. Nutritional Asmnt/Malnutr-PDOC - Dietary Evaluation Malnutrition Findings (Please click <Entered> for more info): Nutritional Asmnt/Malnutrition Start: 07/14/18 16: 23 Text: Status: Complete Freq: Protocol: Document 07/14/18 16:24 LCHENG (Rec: 07/14/18 16:32 LCHENG [email or web address]) Nutritional Asmnt/Malnutrition Patient General Information Nutritional Screening High Risk Diagnosis sepsis Pertinent Medical Hx/Surgical Hx s/p intracranial hemorrhage, COPD, PNA, ?CAD, UTI, sepsis, anemia, decubitus ulcer, DVT, trach, Gtube placement Subjective Information Pt see resting in bed at time of visit, trach on vent. TF was running at 45ml/hr as ordered. Current Diet Order/ Nutrition Support Jevity 1.2 at 45ml x 20hr Pertinent Medications theragran, piperacillin Pertinent Labs 07/13 BUN 49, Glucose 127 Nutritional Hx/Data Height 1.52 m Height (Calculated Centimeters) 152.4 Current Weight (lbs) 44.906 kg Weight (Calculated Kilograms) 44.9 Weight (Calculated Grams) 57038.6 [place] Body Weight 100 Body Mass Index (BMI) 19.3 Weight Status Approriate GI Symptoms GI Symptoms None Last BM not indicated Difficult in: None Skin Integrity/Comment: intact Estimated Nutritional Goals BEE in Kcals: Using Current wt Calories/Kcals/Kg 23-27 Kcals Calculated 3770-0665 Protein: Using Current wt Protein g/k-1.2 Protein Calculated 45-55 Fluid: ml 1035-1215ml (1ml/kcal) Nutritional Problem No current Nutrition Prob Problem N/A Malnutrition Alert Is there a minimum of two criteria No selected? Query Text:Check all the applicable criteria. A minimum of two criteria are recommended for diagnosis of either severe or non-severe malnutrition. Malnutrition Related to Morbid Obesity Malnutrition related to morbid obesity No Intervention/Recommendation Comments 1. Continue with current TF regimen Jevity 1.2 at 45ml/hr x 20hr. It provides 1080kcal, 50g protein, 726ml free water, meeting 100% of nutritional needs 2. Monitor TF rate, tolerance, wt, skin integrity and labs 3. F/U as moderate risk in 3-5 days Expected Outcomes/Goals Expected Outcomes/Goals 1. Pt to meet at least 90% of nutritional needs via nutrition support with tolerance 2. Wt stability, skin to remain intact, labs to approach WNL.
--- NOTE | 2018-07-16 21:49 | Progress Notes ---
DATE: 07/15/2018 SUBJECTIVE: The patient appears to be doing okay, still congested, some bloody secretions. PHYSICAL EXAMINATION: VITAL SIGNS: Temperature 98.8, pulse 80, respiration 18, blood pressure 119/58, saturation 98%. CHEST: Rhonchi bilaterally. HEART: Regular rate and rhythm. ABDOMEN: Soft. EXTREMITIES: No edema. LABORATORY DATA: WBC is 19.9, hemoglobin 9.4, hematocrit 27.8, platelets 219. Sodium is 148, potassium 3.8, BUN is 45, creatinine 1.1. The culture is negative so far. Chest x-ray, infiltrate right lower lobe, otherwise no obvious infection, no obvious congestion. ASSESSMENT: 1. Respiratory failure. 2. Pneumonia. 3. Leukocytosis. 4. History of intracranial bleed and respiratory failure. PLAN: 1. Continue vent and nebulizer treatment. 2. Pulmonary toilet. 3. Antibiotics. 4. Tracheostomy care and follow up ABGs. Follow up cultures. Discussed with family at the bedside. JOB# [id number]
--- NOTE | 2018-07-16 23:03 | Discharge Summary ---
DATE OF DISCHARGE: 07/16/2018 FINAL DIAGNOSES: 1. Ventilator dependent respiratory failure, stabilized. 2. Fever on and off, but improved. 3. Marked leukocytosis. 4. Probable early aspiration pneumonia on antibiotics. 5. Chronic obstructive pulmonary disease. HOSPITAL COURSE: The patient is an 87-year-old male admitted due to fever, markedly leukocytosis, and ventilator dependent respiratory failure, early sepsis and dysphagia, on G-tube feeding as well as decubitus ulcer, COPD. The patient received IVPB antibiotics and RT protocol as well as wound care. She stabilized and accepted to continue hospice involvement. DISCHARGE CONDITION: Stable. DISPOSITION: Continue hospice involvement. DISCHARGE MEDICATIONS: Continue medication form here. DIET: Continue G-tube feeding. ACTIVITY: Best rest with physical therapy. FOLLOWUP: Same day. [facility]# [id number]
--- NOTE | 2018-07-17 03:22 | Progress Notes ---
DATE: 07/16/2018 SUBJECTIVE: The patient appears to be doing okay, less congested comfortable. OBJECTIVE: VITAL SIGNS: Temperature 100.0, pulse 111, respiration 18, blood pressure 132/73, and saturation 95%. CHEST: Good breath sounds, decreased rhonchi. HEART: Regular rate and rhythm. ABDOMEN: Soft. EXTREMITIES: No edema. ASSESSMENT: 1. Respiratory failure. 2. Pneumonia. 3. Dysphagia. 4. Leukocytosis. PLAN: 1. Continue nebulized treatment. 2. Antibiotics. 3. Follow up CBC and chest x-ray. JOB# [id number]
== END 2018-07-16 20:47 | DRG 871 ==
LOC: ER 21:28 → TELE 23:20
PROVIDERS: ADMIT Internal Medicine; ATTEND Internal Medicine
DX: A41.9 Sepsis, unspecified organism (principal); J69.0 Pneumonitis due to inhalation of food and vomit; J96.20 Acute and chronic respiratory failure, unspecified whether with hypoxia or hypercapnia; N39.0 Urinary tract infection, site not specified; Z99.11 Dependence on respirator [ventilator] status; L89.90 Pressure ulcer of unspecified site, unspecified stage; J44.9 Chronic obstructive pulmonary disease, unspecified; R13.10 Dysphagia, unspecified; I25.10 Atherosclerotic heart disease of native coronary artery without angina pectoris; Z74.01 Bed confinement status; Z86.73 Personal history of transient ischemic attack (TIA), and cerebral infarction without residual deficits; Z86.718 Personal history of other venous thrombosis and embolism; Z93.1 Gastrostomy status; Z93.0 Tracheostomy status
CPT/HCPCS: 36415-UA; 71045-TC; 80048-TC; 80053-TC; 81001-TC; 83605; 83735-TC; 85007-TC; 85025-TC; 87070; 87086-90; 94640; 94760; J2543; J7040; Z7610